=== PATIENT | male | born 1950 | race Caucasian/White ===

== ENCOUNTER 2019-10-03 11:15 | Day surgery (SDC) | payer BC, OTHER ==
[~2019-10-03 11:15] MED LIST: BENI5TAB3 PO; LEVO25TA5 PO; METF500T13 PO
[2019-10-03] MEDS ORDERED: ceFAZolin 2 GM/D5W 50 ML IV BAG (J0690 PER 500MG) ONE (11:40)
[2019-10-03] MEDS ORDERED: TRIAMCINOLONE ACETONIDE SUSP 40 MG/ML VIAL (J3301) ONE (13:18)
[2019-10-03] MEDS ORDERED: ROPIvacaine 0.5% 30ML INJECTION (J2795 PER 1MG) ONE (13:18)
[2019-10-03] MEDS ORDERED: ACETAMINOPHEN 1000MG 100ML IV BTL (OFIRMEV) (J0131 PER 10MG) ONE (13:31)
[2019-10-03] MEDS ORDERED: MIDAZOLAM INJ 2MG/2ML VIAL (J2250 PER 1MG) ONE (13:31)
[2019-10-03] MEDS ORDERED: dexameTHASONE 4 MG/ML 1ML VIAL (J1100 PER 1MG) ONE (13:31)
[2019-10-03] MEDS ORDERED: ONDANSETRON 4MG/2ML VIAL ONE (13:31)
[2019-10-03] MEDS ORDERED: fentaNYL 100 MCG/2 ML INJECTION (J3010) ONE (13:31)
[2019-10-03] MEDS ORDERED: propofoL 200 MG/20 ML VIAL ONE (13:31)
[2019-10-03] MEDS ORDERED: LIDOCAINE 2% 100MG/5ML SDV (FOR ANES.) ONE (13:31)
[2019-10-03] MEDS ORDERED: METOCLOPRAMIDE INJ 10MG/2ML VIAL (J2765 PER 1) ONE (13:31)
--- NOTE | 2019-11-27 10:55 | RO ---
DATE OF PROCEDURE: 10/03/2019 PREOPERATIVE DIAGNOSES: 1. Left knee osteoarthritis. 2. Medial meniscus tear. POSTOPERATIVE DIAGNOSES: 1. Left knee osteoarthritis. 2. Medial meniscus tear. PROCEDURE: Left knee operative arthroscopy. Partial medial and lateral meniscectomy. Joint debridement. SURGEON: Arthur Merino M.D. CONFERENCE ORGANIZER: ANESTHESIA: Spinal. ESTIMATED BLOOD LOSS: Minimal COMPLICATIONS: None. INDICATIONS: This is a gentleman in his 60s, who has had some persistent knee pain, some degree of arthritis, but MRI scan was consistent with possible meniscus tear and he had failed conservative management and wish to go under surgical treatment. He understood the nature of this, the risks of bleeding, infection, damaged nerves, vessels, persistent pain, blood clots, medical problems, among others. PROCEDURE: The patient was taken to the operating room and placed in the supine position after spinal anesthesia was induced. The left lower extremity was prepped and draped in the usual sterile fashion. Time-out was performed. Tourniquet was inflated. In then created inferomedial and inferolateral portals. Per routine identified the patellofemoral joint, which had some grade 3 changes and loose flaps that were carefully smoothed off. He had a medial plaque and suprapatellar plaque that were dbrided. I proceeded down both gutters, identified the medial compartment and the medial meniscus had a complex posterior horn medial meniscus tear. This was resected with a combination basket punch and a 4.2 shaver. I re-probed the meniscus, made sure it was stable. I smoothed off any loose flaps on the medial femoral condyle and medial tibial plateau. The ACL was identified and was relatively unremarkable. The lateral compartment was identified and there was a posterior horn lateral meniscus tear near the attachment that was dbrided back with a shaver. The lateral compartment was overall more well preserved, but did have some mild arthritic change. I then re-examined the entire joint, irrigated copiously removing instrumentation, closed the portals using 4-0 nylon suture. Injected 30 cc of Naropin and 20 mg of Kenalog. Sterile dressing was applied. The tourniquet was deflated and he was taken the recovery room in stable condition. There were no known complications. The plan will be routine postop. ANNALEE
== END 2019-10-03 19:50 | disposition home or self-care (01) ==
LOC: M SDC 11:15
PROVIDERS: ATTEND Orthopaedic Surgery
DX: M23.204 Derangement of unspecified medial meniscus due to old tear or injury, left knee (principal); M17.12 Unilateral primary osteoarthritis, left knee; I10 Essential (primary) hypertension; E78.00 Pure hypercholesterolemia, unspecified; E11.9 Type 2 diabetes mellitus without complications; E03.9 Hypothyroidism, unspecified; K21.9 Gastro-esophageal reflux disease without esophagitis; Z79.82 Long term (current) use of aspirin; Z79.84 Long term (current) use of oral hypoglycemic drugs; Z79.899 Other long term (current) drug therapy; F41.9 Anxiety disorder, unspecified; F32.9 Major depressive disorder, single episode, unspecified
CPT/HCPCS: 29880; J0131; J0690; J1100; J2250; J2405; J2765; J2795; J3010; J3301

== ENCOUNTER → 2021-07-22 | Outpatient (CLI) | payer MEDICARE, BC ==
[~2021-07-22] MED LIST changes: +ASPI81TA26 PO; +GABA-282 PO; +METF10004 PO; +OMEP40CA4 PO; +PROAAER10 INH; +REPA140I2 SC; +SERT50TA29 PO; +SYNT88TA2 PO; +TELM1TAB35 PO; +VICT18IN SC
== END ==
LOC: M LABSMTC 09:49
PROVIDERS: ATTEND Anesthesiology
DX: Z01.812 Encounter for preprocedural laboratory examination (principal); Z20.822 Contact with and (suspected) exposure to COVID-19

== ENCOUNTER 2021-07-27 12:18 | Day surgery (SDC) | payer MEDICARE, BC ==
[~2021-07-27] VITALS: Ht 193 cm; Wt 116.6 kg
[~2021-07-27 12:18] MED LIST changes: +NS 1,000 ML IV ONE
[2021-07-27] MEDS ORDERED: LIDOCAINE 2% 100MG/5ML SDV (FOR ANES.) As Ordered ONE (13:12)
[2021-07-27] MEDS ORDERED: propofoL 200 MG/20 ML VIAL As Ordered ONE (13:12)
[2021-07-27 14:44] VITALS: BP 142/66
== END 2021-07-27 14:47 | disposition home or self-care (01) ==
LOC: M OPP 12:18
PROVIDERS: ATTEND Internal Medicine Gastroenterology
DX: Z12.11 Encounter for screening for malignant neoplasm of colon (principal); Z86.010 Personal history of colon polyps; D12.6 Benign neoplasm of colon, unspecified; K64.0 First degree hemorrhoids; E11.9 Type 2 diabetes mellitus without complications; E03.9 Hypothyroidism, unspecified; Z79.82 Long term (current) use of aspirin; Z79.84 Long term (current) use of oral hypoglycemic drugs

== ENCOUNTER 2024-01-02 11:36 | Day surgery (SDC) | payer MEDICARE, BC ==
[~2024-01-02] VITALS: Ht 193 cm; Wt 107.0 kg
[~2024-01-02 11:36] MED LIST changes: -BENI5TAB3 PO; +GABA-1172 PO; -GABA-282 PO; -NS 1,000 ML IV ONE; +OLME5TAB24 PO; +OLME5TAB27 PO; +TAMS1CAP17 PO
[2024-01-02] MEDS ORDERED: propofoL 200 MG/20 ML VIAL As Ordered ONE (13:24)
[2024-01-02 13:40] VITALS: TEMP 97.3
[2024-01-02 13:54] VITALS: BP 117/63; O2SAT 97
== END 2024-01-02 14:07 | disposition home or self-care (01) ==
LOC: M OPP 11:36
PROVIDERS: ATTEND Internal Medicine Gastroenterology
DX: K64.0 First degree hemorrhoids (principal); K57.30 Diverticulosis of large intestine without perforation or abscess without bleeding; K21.9 Gastro-esophageal reflux disease without esophagitis; R93.3 Abnormal findings on diagnostic imaging of other parts of digestive tract; Z90.49 Acquired absence of other specified parts of digestive tract; I10 Essential (primary) hypertension; E11.9 Type 2 diabetes mellitus without complications; E03.9 Hypothyroidism, unspecified; E78.00 Pure hypercholesterolemia, unspecified; Z79.899 Other long term (current) drug therapy; Z79.890 Hormone replacement therapy; Z79.85 Long-term (current) use of injectable non-insulin antidiabetic drugs; Z90.89 Acquired absence of other organs